=== PATIENT | male | born 1965 | race Caucasian/White ===

== ENCOUNTER → 2016-09-10 | Outpatient (CLI) | payer BC ==
[~2016-09-10] MED LIST: BP MED; HYDR1TAB8 OP; [UNRECOGNIZED DRUG - OTHER] PO; pravachol PO; ziac PO
--- NOTE | 2016-09-12 09:47 | ECHOCARDIOGRAPHY REPORT ---
DATE OF SERVICE: 09/10/2016 REFERRING PHYSICIAN: Chandrika Berrios APRN ORDERING PHYSICIAN: Dr. Marisol Murphy CLINICAL DIAGNOSIS: 1. Paroxysmal atrial fibrillation. 2. Hypertension. MEASUREMENTS: Aortic root 3.3. LV diameter diastolic 4.8 IVS thickness diastolic 0.7. LVPW thickness diastolic 0.9. DESCRIPTION: Two dimensional echocardiography shows normal global left ventricular systolic function with normal regional wall motion and left ventricular ejection fraction of approximately 60-65%. Doppler imaging shows trivial mitral and tricuspid regurgitation. Pulmonary artery systolic pressure is estimated to be approximately 25 mmHg. There is no Doppler evidence of any significant valvular stenosis. CONCLUSION: 1. Normal global left ventricular systolic function with ejection fraction of 60-65%. 2. Trivial mitral and tricuspid regurgitation. 3. No evidence of significant valvular stenosis. 4. Pulmonary artery systolic pressure is estimated to be approximately 25 mmHg. Job ID: [id number] DocumentID: [id number] Dictated Date: 09/11/2016 08:01:17 Nursing Support Worker Date: 09/11/2016 08:59:45 Dictated By: MARISOL MURPHY MD, MA, FACP, FACC,
== END ==
LOC: CARD 12:46
PROVIDERS: ATTEND Nurse Practitioner Family
DX: I10 Essential (primary) hypertension (principal); E78.4 Other hyperlipidemia; I48.0 Paroxysmal atrial fibrillation; I51.7 Cardiomegaly
CPT/HCPCS: 93306

== ENCOUNTER → 2017-07-02 | Outpatient (CLI) | payer BC ==
[~2017-07-02] MED LIST changes: +HYDR-87 PO; +METH500T PO
--- NOTE | 2017-07-02 09:59 | Diagnostic Imaging Report ---
INDICATION: Left-sided rib pain COMPARISON: None FINDINGS: Multiple views of the left ribs demonstrate no fracture or osseous lesion. There is no pneumothorax or effusion. IMPRESSION: Negative left rib series. Dictated by: Dictated on workstation # [id number]
== END ==
LOC: RAD 09:28
PROVIDERS: ATTEND Nurse Practitioner Family
DX: R07.81 Pleurodynia (principal)
CPT/HCPCS: 71100

== ENCOUNTER 2017-07-03 19:27 | Emergency (ER) | payer BC ==
[~2017-07-03] VITALS: Ht 185.4 cm; Wt 91.2 kg
[~2017-07-03 19:27] MED LIST changes: -HYDR-87 PO; -METH500T PO
--- NOTE | 2017-07-03 22:17 | ED Back Pain ---
General Chief Complaint: Back Problems Stated Complaint: LEFT SIDE RIB PAIN Nursing Triage Note: states he fell Thu off of running board of truck and landed on left side. Went to urgent care and was given pain pills. Was called today to tell him he had no fracture but since his pain has increased, wanted him seen in ED to make sure he did not rupture anything. Nursing Sepsis Screen: No Definite Risk Source of Information: Patient History of Present Illness Date Seen by Provider: Jul 03, 2017 Time Seen by Provider: 22:05 Initial Comments PT ARRIVES VIA POV FROM HOME STATES ON THURSDAY EVENING 07/01/17, HE WAS GETTING INTO HIS MORNING BABYSITTER TRUCK AND FELL OFF STEP/RUNNING BOARD, APPROXIMATELY 3 FEET OFF GROUND, AND LANDED ON HIS LEFT BACK ONTO CONCRETE DID NOT HIT HEAD AND NO LOSS OF CONSCIOUSNESS WAS SEEN AT [facility] ON THURSDAY AND HAD XRAYS DONE AND WERE REPORTED NEGATIVE--GOT RESULTS THIS AFTERNOON. RECEIVED RX FOR PAIN MEDICATION PT HAS HAD CONTINUED INCREASE IN PAIN AND MUCH PAIN WITH BREATHING NO PROBLEMS URINATING NO PARESTHESIAS OR MOTOR DEFICITS NO NAUSEA/VOMITING Other Comments PCP: NONE WELT STITCH CLEANER: DR. MURPHY Allergies and Home Medications Allergies Coded Allergies: No Known Drug Allergies (Unverified , 07/03/17) Home Medications Hydrocodone Bit/Ibuprofen 1 Each Tablet, 1-2 EACH OP Q 4 - 6 HRS PRN, #20 Ref 0 FOR PAIN Prescribed by: CORONA CLEANING on 12/07/10 0235 Hydrocodone/Ibuprofen 1 Each Tablet, 1-2 EACH PO Q4H, #20 Prescribed by: CORONA CLEANING on 07/04/17 0031 Methocarbamol 500 Mg Tablet, 500 MG PO QID, #20 Prescribed by: CORONA CLEANING on 07/04/17 0031 [klorchon] , 1 TAB PO DAILY, (Reported) [pravachol] , 1 TAB PO DAILY, (Reported) [ziac] , 1 TAB PO DAILY, (Reported) Constitutional: no symptoms reported EENTM: no symptoms reported Respiratory: see HPI Cardiovascular: see HPI Gastrointestinal: abdominal pain (LUQ AND LEFT FLANK) Genitourinary: no symptoms reported Musculoskeletal: see HPI, back pain Skin: no symptoms reported Psychiatric/Neurological: No Symptoms Reported Past Bbnopkq-Viajhk-Opoxff Hx Patient Social History Alcohol Use: Rarely Uses Recreational Drug Use: No Smoking Status: Never a Smoker 2nd Hand Smoke Exposure: No Recent Foreign Travel: No Contact w/Someone Who Travel: No Recent Infectious Disease Expo: No Recent Hopitalizations: No Immunizations Up To Date Tetanus Booster (TDap): More than 5yrs Date of Influenza Vaccine: Feb 22, 2017 Seasonal Allergies Seasonal Allergies: No Surgeries History of Surgeries: Yes (BACK SURGERY X 2) Surgeries: Orthopedic Respiratory History of Respiratory Disorde: No Cardiovascular History of Cardiac Disorders: Yes Cardiac Disorders: Hypertension Neurological History of Neurological Disord: No Reproductive System Hx Reproductive Disorders: No Sexually Transmitted Disease: No Gastrointestinal History of Gastrointestinal Di: No Musculoskeletal History of Musculoskeletal Dis: Yes (BACK SURGERY X 2) Musculoskeletal Disorders: Chronic Back Pain Endocrine History of Endocrine Disorders: No Cancer History of Cancer: No Psychosocial History of Psychiatric Problem: No Integumentary History of Skin or Integumenta: No Blood Transfusions History of Blood Disorders: No Physical Exam Vital Signs Vital Signs - First Documented 07/03/17 20:27 Temp 98.1 Pulse 81 Resp 18 B/P (MAP) 178/100 (126) Pulse Ox 96 Capillary Refill : Less Than 3 Seconds General Appearance: No Apparent Distress, WD/WN, Other (STANDING) Neck: Full Range of Motion, Normal Inspection, Non Tender, Supple Cardiovascular: Regular Rate, Rhythm, No Edema, No JVD, No Murmur, Normal Peripheral Pulses Respiratory: Normal Breath Sounds, No Accessory Muscle Use, No Respiratory Distress, Other (MODERATE TENDERNESS TO LEFT ANTERIOR/LATERAL/POSTERIOR LOWER RIB AREA. NO CREPITANCE OR SUB Q AIR) Gastrointestinal: Normal Bowel Sounds, No Organomegaly, No Pulsatile Mass, Soft , Tenderness (LEFT FLANK AND LUQ TENDERNESS, WITH FAINT BRUISE TO LEFT FLANK) Back: No Vertebral Tenderness, CVA Tenderness (L), Decreased Range of Motion Extremity: Normal Capillary Refill, Normal Inspection, Normal Range of Motion, Non Tender, No Calf Tenderness, No Pedal Edema Neurologic/Psychiatric: Alert, Oriented x3, No Motor/Sensory Deficits, Normal Mood/Affect, medical artist II-XII Norm as Tested Skin: Normal Color, Warm/Dry, Ecchymosis Progress/Results/Core Measures Results/Orders Lab Results Laboratory Tests Test 07/03/17 22:25 07/03/17 23:23 Range/Units White Blood Count 8.0 4.3-11.0 10^3/uL Red Blood Count 4.80 4.35-5.85 10^6/uL Hemoglobin 15.2 13.3-17.7 G/DL Hematocrit 45 40-54 % Mean Corpuscular Volume 94 80-99 FL Mean Corpuscular Hemoglobin 32 25-34 PG Mean Corpuscular Hemoglobin Concent 34 32-36 G/DL Red Cell Distribution Width 13.0 10.0-14.5 % Platelet Count 179 130-400 10^3/uL Mean Platelet Volume 10.3 7.4-10.4 FL Neutrophils (%) (Auto) 74 42-75 % Lymphocytes (%) (Auto) 15 12-44 % Monocytes (%) (Auto) 5 0-12 % Eosinophils (%) (Auto) 6 0-10 % Basophils (%) (Auto) 0 0-10 % Neutrophils # (Auto) 5.9 1.8-7.8 X 10^3 Lymphocytes # (Auto) 1.2 1.0-4.0 X 10^3 Monocytes # (Auto) 0.4 0.0-1.0 X 10^3 Eosinophils # (Auto) 0.5 H 0.0-0.3 10^3/uL Basophils # (Auto) 0.0 0.0-0.1 10^3/uL Prothrombin Time 12.7 12.2-14.7 SEC INR Comment 0.9 0.8-1.4 Activated Partial Thromboplast Time 27 24-35 SEC Sodium Level 140 135-145 MMOL/L Potassium Level 3.9 3.6-5.0 MMOL/L Chloride Level 106 98-107 MMOL/L Carbon Dioxide Level 22 21-32 MMOL/L Anion Gap 12 5-14 MMOL/L Blood Urea Nitrogen 16 7-18 MG/DL Creatinine 1.17 0.60-1.30 MG/DL Estimat Glomerular Filtration Rate > 60 BUN/Creatinine Ratio 14 Glucose Level 128 H 70-105 MG/DL Calcium Level 8.9 8.5-10.1 MG/DL Total Bilirubin 0.6 0.1-1.0 MG/DL Aspartate Amino Transf (AST/SGOT) 20 5-34 U/L Alanine Aminotransferase (ALT/SGPT) 53 0-55 U/L Alkaline Phosphatase 93 40-136 U/L Total Protein 7.2 6.4-8.2 GM/DL Albumin 4.4 3.2-4.5 GM/DL Amylase Level 54 25-125 U/L Lipase 18 8-78 U/L Urine Color YELLOW Urine Clarity CLEAR Urine pH 5 5-9 Urine Specific [place] 1.025 H 1.016-1.022 Urine Protein NEGATIVE NEGATIVE Urine Glucose (UA) NEGATIVE NEGATIVE Urine Ketones NEGATIVE NEGATIVE Urine Nitrite NEGATIVE NEGATIVE Urine Bilirubin NEGATIVE NEGATIVE Urine Urobilinogen NORMAL NORMAL MG/DL Urine Leukocyte Esterase NEGATIVE NEGATIVE Urine RBC (Auto) NEGATIVE NEGATIVE Urine RBC NONE /HPF Urine WBC NONE /HPF Urine Squamous Epithelial Cells 0-2 /HPF Urine Crystals NONE /LPF Urine Bacteria NEGATIVE /HPF Urine Casts NONE /LPF Urine Mucus MODERATE H /LPF Urine Culture Indicated NO My Orders Orders - CORONA CLEANING DO Saline Lock/Iv-Start (07/03/17 22:13) Amylase (07/03/17 22:13) Cbc With Automated Diff (07/03/17 22:13) Comprehensive Metabolic Panel (07/03/17 22:13) Lipase (07/03/17 22:13) Protime With Inr (07/03/17 22:13) Partial Thromboplastin Time (07/03/17 22:13) Ua Culture If Indicated (07/03/17 22:13) Ct Chest/Abdomen/Pelvis W (07/03/17 22:13) Iohexol Injection (Omnipaque 350 Mg/Ml 1 (07/04/17 00:00) Ns (Ivpb) (Sodium Chloride 0.9%) (07/04/17 00:00) Fentanyl Injection (Sublimaze Injection (07/04/17 00:26) Ketorolac Injection (Toradol Injection) (07/04/17 00:26) Orphenadrine Injection (Norflex Injectio (07/04/17 00:26) Rx-Hydrocodone/Apap 5-325 Mg (Rx-Vicodin (07/04/17 00:30) Medications Given in ED Current Medications Medications Dose Ordered Sig/Gibson Route Start Time Stop Time Status Last Admin Dose Admin Acetaminophen/ Hydrocodone Bitart 1 ea Q4H PRN PO 07/04/17 00:30 07/04/17 01:24 DC 07/04/17 00:45 1 EA Iohexol 100 ml ONCE ONCE IV 07/04/17 00:00 07/04/17 00:47 DC 07/03/17 23:49 100 ML Sodium Chloride 80 ml ONCE ONCE IV 07/04/17 00:00 07/04/17 00:47 DC 07/03/17 23:49 80 ML Vital Signs/I&O Vital Sign - Last 12Hours 07/03/17 20:27 Temp 98.1 Pulse 81 Resp 18 B/P (MAP) 178/100 (126) Pulse Ox 96 Blood Pressure Mean: [address] CHEST/ABDOMEN/PELVIS--FRACTURES LEFT RIBS 10 AND 11, NO OTHER ACUTE PROCESS-- PER [facility] VIA FAX @ 0048 Reviewed: Reviewed by Me Departure Impression Impression: Primary Impression: Multiple fractures of ribs, left side, initial encounter for closed fracture Disposition: HOME, SELF-CARE Condition: Stable Departure-Patient Inst. Referrals: NO,LOCAL PHYSICIAN (PCP/Family) Primary Care Physician Patient Instructions: Rib Fracture (DC) Add. Discharge Instructions: ALTERNATE ICE AND HEAT TO SORE AREA AT 20 MINUTE INTERVALS FOLLOW UP WITH DR OF CHOICE IN 1 WEEK FOR RECHECK All discharge instructions reviewed with patient and/or family. Voiced understanding. Scripts Methocarbamol (Robaxin) 500 Mg Tablet 500 MG PO QID for Muscle Spasms, #20 TAB Prov: CORONA CLEANING DO 07/04/17 Hydrocodone/Ibuprofen (Hydrocodone-Ibuprofen 7.5-200) 1 Each Tablet 1-2 EACH PO Q4H for Pain, #20 TAB Prov: CORONA CLEANING DO 07/04/17 CORONA CLEANING DO Jul 03, 2017 22:17
[2017-07-03 22:33] LABS: BASOPHILS % (AUTO) 0 % (0-10); EOSINOPHILS # (AUTO) 0.5 10^3/uL (0.0-0.3); EOSINOPHILS % (AUTO) 6 % (0-10); HEMATOCRIT 45 % (40-54); HEMOGLOBIN 15.2 G/DL (13.3-17.7); LYMPHOCYTES # (AUTO) 1.2 X 10^3 (1.0-4.0); LYMPHOCYTES % (AUTO) 15 % (12-44); MEAN CORPUSCULAR HEMOGLOBIN 32 PG (25-34); MEAN CORPUSCULAR HGB CONC 34 G/DL (32-36); MEAN CORPUSCULAR VOLUME 94 FL (80-99); MEAN PLATELET VOLUME 10.3 FL (7.4-10.4); MONOCYTES # (AUTO) 0.4 X 10^3 (0.0-1.0); MONOCYTES % (AUTO) 5 % (0-12); NEUTROPHILS # (AUTO) 5.9 X 10^3 (1.8-7.8); NEUTROPHILS % (AUTO) 74 % (42-75); PLATELET COUNT 179 10^3/uL (130-400)
[2017-07-03 22:43] LABS: INR 0.9 (0.8-1.4); PROTHROMBIN TIME PATIENT 12.7 SEC (12.2-14.7)
[2017-07-03 22:57] LABS: ALANINE AMINOTRANSFERASE 53 U/L (0-55); ALBUMIN 4.4 GM/DL (3.2-4.5); ALKALINE PHOSPHATASE 93 U/L (40-136); AMYLASE 54 U/L (25-125); BILIRUBIN,TOTAL 0.6 MG/DL (0.1-1.0); BUN/CREATININE RATIO 14; CALCIUM 8.9 MG/DL (8.5-10.1); CARBON DIOXIDE 22 MMOL/L (21-32); CHLORIDE 106 MMOL/L (98-107); CREATININE SERUM 1.17 MG/DL (0.60-1.30); GFR ESTIMATED > 60; GLUCOSE 128 MG/DL (70-105); LIPASE 18 U/L (8-78); POTASSIUM 3.9 MMOL/L (3.6-5.0); SODIUM 140 MMOL/L (135-145); TOTAL PROTEIN 7.2 GM/DL (6.4-8.2)
[2017-07-03 23:50] LABS: BILIRUBIN,URINE NEGATIVE (NEGATIVE); CLARITY,URINE CLEAR; COLOR,URINE YELLOW; GLUCOSE, URINE (UA) NEGATIVE (NEGATIVE); KETONES,URINE NEGATIVE (NEGATIVE); LEUKOCYTE ESTERASE ,URINE NEGATIVE (NEGATIVE); NITRITE,URINE NEGATIVE (NEGATIVE); PH,URINE 5 (5-9); PROTEIN,URINE NEGATIVE (NEGATIVE); UROBILINOGEN,URINE NORMAL (NORMAL)
[2017-07-03 23:51] LABS: BACTERIA,URINE NEGATIVE /HPF; SQUAMOUS EPITHELIAL CELL,UR 0-2 /HPF
[2017-07-04] MEDS ORDERED: IOHEXOL 350 MG/ML 100 ML (OMNIPAQUE 350) VIAL IV ONE
[2017-07-04] MEDS ORDERED: NS 250 ML (IVPB) BAG IV ONE
[2017-07-04] MEDS ORDERED: ORPHENADRINE 60 MG/2 ML (NORFLEX) AMP IV STA (00:26)
[2017-07-04] MEDS ORDERED: fentaNYL INJECTION 100 MCG/2 ML AMP IVP STA (00:26)
[2017-07-04] MEDS ORDERED: KETOROLAC 30 MG/ML VIAL IVP STA (00:26)
[2017-07-04] MEDS ORDERED: RX-HYDROCODONE/APAP 5/325 MG #4 TAB PK PO PRN (00:30)
[2017-07-04] MEDS ORDERED: METH500T PO (00:31)
[2017-07-04] MEDS ORDERED: HYDR-87 PO (00:31)
[2017-07-04 00:50] VITALS: BP 165/99
--- NOTE | 2017-07-04 07:50 | Diagnostic Imaging Report ---
PROCEDURE: CT chest, abdomen, and pelvis with contrast. TECHNIQUE: Multiple contiguous axial images were obtained through the chest, abdomen, and pelvis after the administration of intravenous contrast. INDICATION: Left-sided chest pain. No priors. FINDINGS: Fracture of the 11th rib posteriorly and the left 10th rib posterolaterally are present. These appeared recent with no evidence of healing and only minimal displacement. Remaining chest wall structures appeared unremarkable. There is no pneumothorax or hemothorax. There is only minimal left basilar partial atelectasis. The aorta is intact. There is no mediastinal or pericardial fluid. No evidence for aspiration or contusion. Abdomen and pelvis: There is no evidence for abdominal pelvic solid or hollow visceral injury. The abdominal and pelvic osseous structures were intact. No bowel, biliary or urinary tract obstruction. Left greater than right renal parapelvic cysts noted incidentally and benign. Liver, spleen, adrenals, pancreas, and gallbladder unremarkable. IMPRESSION: Acute appearing unhealed fractures of the left 10th and 11th ribs without evidence for pulmonary parenchymal or pleural injury. Intact mediastinal structures. Abdomen and pelvis: Benign renal parapelvic cyst with no evidence for abdominal pelvic solid or hollow visceral injury. No acute abdominal pelvic bony abnormality. Dictated by: Dictated on workstation # [id number]
--- OUTSIDE RECORDS SUMMARY | 2017-07-05 10:32 | XMS REPORT | Clinical Summary ---
Author Author [facility] Organization [facility] Address Unknown Phone Unavailable Care Team Providers Care Compression Molding Machine Tender Name Role Phone Unverified, Unverified Md PCP Unavailable Source Comments Some departments are not documenting in the electronic medical record. If you do not see the information that you expected, contact Release of Information in the Health Information Management department at [phone] for further assistance in locating additional records.[facility] Allergies No Known Allergies Current Medications Prescription Sig. Disp. Refills Start End Date Status Date pravastatin (PRAVACHOL) Take 40 mg by mouth Active 40 mg tablet daily. metoprolol XL (TOPROL XL) Take 100 mg by mouth Active 100 mg tablet daily with breakfast. metoprolol XL (TOPROL XL) Take 50 mg by mouth at Active 50 mg tablet bedtime daily. aspirin, buffered 325 mg Take 1 Tab by mouth Active tablet daily. flecainide (TAMBOCOR) 50 Take 1 Tab by mouth twice 60 Tab 6 03/30/20 Active mg tablet daily. 12 Active Problems Problem Noted Date Palpitations 03/29/2012 Overview: 11/03/11: Stress echo showed paroxysmal afib with RVR, No evidence of exercise-induced myocardial ischemia, EF 60%, trivial to mild mitral and tricuspid regurgitation, PA systolic pressure approx 30-35 mmHg. Paroxysmal A-fib (HCC) 03/29/2012 Overview: Echo EF normal , LA 2.9 cm. Hypertension 03/29/2012 Hypertriglyceridemia 03/29/2012 Family History Medical History Relation Name Comments Coronary Artery Disease Father Hypertension Father Coronary Artery Disease Maternal Uncle Hypertension Mother Coronary Artery Disease Paternal Grandfather Relation Name Status Comments Father NM (Age 60) Maternal Uncle Mother Alive Paternal Grandfather Sister Alive Social History Tobacco Use Types Packs/Day Years Used Date Never Smoker Smokeless Tobacco: Chew Current User Tobacco Cessation: Ready to Quit: No Sex Assigned at Date Recorded Not on file Last Filed Vital Signs Vital Sign Reading Time Taken Blood Pressure 130/84 03/30/2012 1:53 PM TECHNICAL SPEC Pulse 64 03/30/2012 1:53 PM TECHNICAL SPEC Temperature - - Respiratory Rate - - Oxygen Saturation 98% 03/30/2012 1:53 PM TECHNICAL SPEC Inhaled Oxygen - - Concentration Weight 96 kg (211 lb 11.2 oz) 03/30/2012 1:42 PM TECHNICAL SPEC Height 182.9 cm (6') 03/30/2012 1:42 PM TECHNICAL SPEC Body Mass Index 28.71 03/30/2012 1:42 PM TECHNICAL SPEC Plan of Treatment Health Maintenance Due Date Last Done Comments PHYSICAL (COMPREHENSIVE) 1973 EXAM PERTUSSIS VACCINE 1977 TETANUS VACCINE 1983 COLORECTAL CANCER 2016 SCREENING INFLUENZA VACCINE 12/23/2016 Results Not on filefrom Last 3 Months
--- OUTSIDE RECORDS SUMMARY | 2017-07-05 10:32 | XMS REPORT | Continuity of Care Document ---
Author Author [facility] Organization [facility] Address Unknown Phone Unavailable Allergies Active Description Code Type Severity Reaction Onset Reported/Identified Relationship to Patient Clinical Status Yes No Known Drug Allergies [id number] Drug Allergy Unknown N/A 12/07/2010 Medications There is no data. Problems Date Dx Coded Attending Type Code Diagnosis Diagnosed By 12/07/2010 Ot 815.00 12/07/2010 Ot 959.5 12/07/2010 Ot E000.8 12/07/2010 Ot E849.0 12/07/2010 Ot E917.9 12/10/2010 Ot 815.00 12/10/2010 Ot E000.8 12/10/2010 Ot E849.0 12/10/2010 Ot E917.9 12/23/2012 Armaan King MD, Jose M Johns V72.81 [id number] CARDIOVASCULAR 12/23/2012 Jose M Umana MD V72.81 [id number] CARDIOVASCULAR 08/10/2015 Ot 427.31 08/10/2015 Ot 785.1 08/10/2015 Ot 786.59 08/13/2015 LUZ MARIA KUMARI DO Ot M47.896 08/13/2015 LUZ MARIA KUMARI DO Ot N28.1 08/22/2015 LUZ MARIA KUMARI DO Ot M47.896 08/22/2015 LUZ MARIA KUMARI DO Ot N28.1 09/10/2016 Ot 427.31 ATRIAL FIBRILLATION 09/10/2016 Ot 785.1 PALPITATIONS 09/10/2016 Ot 786.59 CHEST PAIN NEC 09/10/2016 LUZ MARIA KUMARI DO Ot M47.896 OTHER SPONDYLOSIS, LUMBAR REGION 09/10/2016 LUZ MARIA KUMARI DO Ot N28.1 CYST OF KIDNEY, ACQUIRED 09/13/2016 RAJESH IYER LEAD RECREATION ASSISTANT Ot E78.4 OTHER HYPERLIPIDEMIA 09/13/2016 RAJESH IYER LEAD RECREATION ASSISTANT Ot I10 ESSENTIAL (PRIMARY) HYPERTENSION 09/13/2016 BAIRAJESH BECKER LEAD RECREATION ASSISTANT Ot I48.0 PAROXYSMAL ATRIAL FIBRILLATION 09/13/2016 RAJESH IYER LEAD RECREATION ASSISTANT Ot I51.7 CARDIOMEGALY 09/24/2016 RAJESH IYER LEAD RECREATION ASSISTANT Ot E78.4 OTHER HYPERLIPIDEMIA 09/24/2016 RAJESH IYER LEAD RECREATION ASSISTANT Ot I10 ESSENTIAL (PRIMARY) HYPERTENSION 09/24/2016 RAJESH IYER LEAD RECREATION ASSISTANT Ot I48.0 PAROXYSMAL ATRIAL FIBRILLATION 09/24/2016 RAJESH IYER LEAD RECREATION ASSISTANT Ot I51.7 CARDIOMEGALY 07/02/2017 LUZ MARIA KUMARI DO Ot M47.896 OTHER SPONDYLOSIS, LUMBAR REGION 07/02/2017 LUZ MARIA KUMARI DO Ot N28.1 CYST OF KIDNEY, ACQUIRED 07/02/2017 IDALIARAJESH BECKER LEAD RECREATION ASSISTANT Ot E78.4 OTHER HYPERLIPIDEMIA 07/02/2017 IDALIARAJESH BECKER LEAD RECREATION ASSISTANT Ot I10 ESSENTIAL (PRIMARY) HYPERTENSION 07/02/2017 IDALIARAJESH BECKER LEAD RECREATION ASSISTANT Ot I48.0 PAROXYSMAL ATRIAL FIBRILLATION 07/02/2017 IDALIARAJESH BECKER LEAD RECREATION ASSISTANT Ot I51.7 CARDIOMEGALY Procedures Code Description Performed By Performed On 37.26 CATHETER BASED INVASIVE ELECTROPHYSIOLOGIC TESTING Armaan King MD, Jose M 12/27/2012 37.27 CARDIAC MAPPING Armaan King MD, Jose M 12/27/2012 37.34 EXC/DESTRUCTN OF OTH LES/ TIS OF HEART, ENDOVASCULA Armaan King MD, Jose M 12/27/2012 88.72 DX ULTRASOUND-HEART Armaan King MD, Jose M 12/27/2012 Results Test Result Range B-TYPE NATRIURETIC PEPTIDE - 12/23/12 10:24 B-TYPE NATRIURETIC PEPTIDE 15 pg/mL < 100 CBC - 12/23/12 10:24 MEAN CELL HGB 31.9 pg 27.0-33.0 MEAN CELL HGB CONCENTRATION 34.1 g/dL 32.0-37.0 MEAN CELL VOLUME 93.5 fl 80.0-100.0 RED BLOOD CELL 4.64 m/cumm 4.00-6.00 RED CELL DISTRIBUTION WIDTH 12.7 % 11.0-15.6 WHITE BLOOD CELL 4.8 k/cumm 5.0-10.0 HEMOGLOBIN 14.8 gm/dL 14.0-18.0 HEMATOCRIT 43.4 % 40.0-54.0 PLATELET COUNT 195 k/cumm 150-400 PROTHROMBIN TIME WITH INR - 12/23/12 10:24 INTERNATIONAL NORMAL RATIO 1.0 0.9-1.1 PROTHROMBIN TIME 11.0 sec 9.3-12.2 PARTIAL THROMBOPLASTIN TIME - 12/23/12 10:24 PARTIAL THROMBOPLASTIN TIME 33 sec 24-36 METABOLIC PANEL, COMPREHN - 12/23/12 10:24 POTASSIUM 4.2 mmol/L 3.5-5.3 EST GFR (MDRD) > 60 mL/min > 59 ANION GAP 9 mmol/L 5-15 EST CrCl (CG) > 60 mL/min > 59 GLUCOSE 99 mg/dL 70-99 CALCIUM 8.6 mg/dL 8.5-10.1 BLOOD UREA NITROGEN 15 mg/dL 7-20 CREATININE 1.2 mg/dL 0.8-1.3 SODIUM 141 mmol/L 135-148 CHLORIDE 107 mmol/L 98-110 AST/SGOT 138 Units/L 10-37 ALT/SGPT 196 Units/L < 66 CARBON DIOXIDE 25 mmol/L 21-32 TOTAL PROTEIN 7.5 gm/dL 6.4-8.2 ALBUMIN 4.4 gm/dL 3.4-5.0 BILI TOTAL 0.6 mg/dL 0.0-1.0 ALKALINE PHOSPHATASE TOTAL 123 Units/L 50-136 MAGNESIUM - 12/23/12 10:24 MAGNESIUM 2.2 mg/dL 1.8-2.4 THYROID STIM HORMONE (TSH) - 12/23/12 10:24 THYROID STIM HORMONE (TSH) 1.76 uIU/mL 0.34-4.82 PROTHROMBIN TIME WITH INR - 12/27/12 06:25 INTERNATIONAL NORMAL RATIO 1.0 0.9-1.1 PROTHROMBIN TIME 11.1 sec 9.3-12.2 PARTIAL THROMBOPLASTIN TIME - 12/27/12 06:25 PARTIAL THROMBOPLASTIN TIME 32 sec 24-36 PARTIAL THROMBOPLASTIN TIME - 12/27/12 15:00 PARTIAL THROMBOPLASTIN TIME > 400 sec 24-36 PARTIAL THROMBOPLASTIN TIME - 12/27/12 17:20 PARTIAL THROMBOPLASTIN TIME 103 sec 24-36 PARTIAL THROMBOPLASTIN TIME - 12/27/12 18:30 PARTIAL THROMBOPLASTIN TIME 55 sec 24-36 CBC W/DIFF - 12/28/12 03:10 COMMENT REVIEWED GRANULOCYTE # 14.4 k/cumm 2.0-9.0 GRANULOCYTE % 90 % 50-75 LYMPHOCYTE # 1.1 k/cumm 1.0-4.0 LYMPHOCYTE % 7 % 20-30 MEAN CELL HGB 31.8 pg 27.0-33.0 MEAN CELL HGB CONCENTRATION 34.1 g/dL 32.0-37.0 MEAN CELL VOLUME 93.3 fl 80.0-100.0 MONOCYTE # 0.6 k/cumm 0.1-1.0 MONOCYTE % 4 % 4-6 RED BLOOD CELL 4.81 m/cumm 4.00-6.00 RED CELL DISTRIBUTION WIDTH 13.6 % 11.0-15.6 WHITE BLOOD CELL 16.1 k/cumm 5.0-10.0 HEMOGLOBIN 15.3 gm/dL 14.0-18.0 HEMATOCRIT 44.9 % 40.0-54.0 PLATELET COUNT 258 k/cumm 150-400 METABOLIC PANEL, BASIC - 12/28/12 04:30 POTASSIUM 4.0 mmol/L 3.5-5.3 EST GFR (MDRD) 58 mL/min > 59 ANION GAP 9 mmol/L 5-15 EST CrCl (CG) > 60 mL/min > 59 GLUCOSE 184 mg/dL 70-99 CALCIUM 8.5 mg/dL 8.5-10.1 BLOOD UREA NITROGEN 13 mg/dL 7-20 CREATININE 1.4 mg/dL 0.8-1.3 SODIUM 136 mmol/L 135-148 CHLORIDE 102 mmol/L 98-110 CARBON DIOXIDE 25 mmol/L 21-32 PROTHROMBIN TIME WITH INR - 12/28/12 04:30 INTERNATIONAL NORMAL RATIO 1.1 0.9-1.1 PROTHROMBIN TIME 11.8 sec 9.3-12.2 Complete blood count (CBC) with automated white blood cell (WBC) differential - 07/03/17 22:25 Blood leukocytes automated count (number/volume) 8.0 10*3/uL 4.3-11.0 Blood erythrocytes automated count (number/volume) 4.80 10*6/uL 4.35-5.85 Venous blood hemoglobin measurement (mass/volume) 15.2 g/dL 13.3-17.7 Blood hematocrit (volume fraction) 45 % 40-54 Automated erythrocyte mean corpuscular volume 94 [foz_us] 80-99 Automated erythrocyte mean corpuscular hemoglobin (mass per erythrocyte) 32 pg 25-34 Automated erythrocyte mean corpuscular hemoglobin concentration measurement ( mass/volume) 34 g/dL 32-36 Automated erythrocyte distribution width ratio 13.0 % 10.0-14.5 Automated blood platelet count (count/volume) 179 10*3/uL 130-400 Automated blood platelet mean volume measurement 10.3 [foz_us] 7.4-10.4 Automated blood neutrophils/100 leukocytes 74 % 42-75 Automated blood lymphocytes/100 leukocytes 15 % 12-44 Blood monocytes/100 leukocytes 5 % 0-12 Automated blood eosinophils/100 leukocytes 6 % 0-10 Automated blood basophils/100 leukocytes 0 % 0-10 Blood neutrophils automated count (number/volume) 5.9 10*3 1.8-7.8 Blood lymphocytes automated count (number/volume) 1.2 10*3 1.0-4.0 Blood monocytes automated count (number/volume) 0.4 10*3 0.0-1.0 Automated eosinophil count 0.5 10*3/uL 0.0-0.3 Automated blood basophil count (count/volume) 0.0 10*3/uL 0.0-0.1 Comprehensive metabolic panel - 07/03/17 22:25 Serum or plasma sodium measurement (moles/volume) 140 mmol/L 135-145 Serum or plasma potassium measurement (moles/volume) 3.9 mmol/L 3.6-5.0 Serum or plasma chloride measurement (moles/volume) 106 mmol/L 98-107 Carbon dioxide 22 mmol/L 21-32 Serum or plasma anion gap determination (moles/volume) 12 mmol/L 5-14 Serum or plasma urea nitrogen measurement (mass/volume) 16 mg/dL 7-18 Serum or plasma creatinine measurement (mass/volume) 1.17 mg/dL 0.60-1.30 Serum or plasma urea nitrogen/creatinine mass ratio 14 NRG Serum or plasma creatinine measurement with calculation of estimated glomerular filtration rate > NRG Serum or plasma glucose measurement (mass/volume) 128 mg/dL 70-105 Serum or plasma calcium measurement (mass/volume) 8.9 mg/dL 8.5-10.1 Serum or plasma total bilirubin measurement (mass/volume) 0.6 mg/dL 0.1-1.0 Serum or plasma alkaline phosphatase measurement (enzymatic activity/volume) 93 U/L 40-136 Serum or plasma aspartate aminotransferase measurement (enzymatic activity/ volume) 20 U/L 5-34 Serum or plasma alanine aminotransferase measurement (enzymatic activity/volume ) 53 U/L 0-55 Serum or plasma protein measurement (mass/volume) 7.2 g/dL 6.4-8.2 Serum or plasma albumin measurement (mass/volume) 4.4 g/dL 3.2-4.5 Serum or plasma amylase measurement (enzymatic activity/volume) - 07/03/17 22: 25 Serum or plasma amylase measurement (enzymatic activity/volume) 54 U /L 25-125 Lipase - 07/03/17 22:25 Lipase 18 U/L 8-78 PT panel in platelet poor plasma by coagulation assay - 07/03/17 22:25 Prothrombin time (PT) in platelet poor plasma by coagulation assay 12.7 s 12.2-14.7 INR in platelet poor plasma or blood by coagulation assay 0.9 0.8-1.4 Activated partial thromboplastin time (aPTT) in platelet poor plasma bycoagulation assay - 07/03/17 22:25 Activated partial thromboplastin time (aPTT) in platelet poor plasma bycoagulation assay 27 s 24-35 Complete urinalysis with reflex to culture - 07/03/17 23:23 Urine color determination YELLOW NRG Urine clarity determination CLEAR NRG Urine pH measurement by test strip 5 5-9 Specific gravity of urine by test strip 1.025 1.016- 1.022 Urine protein assay by test strip, semi-quantitative NEGATIVE NEGATIVE Urine glucose detection by automated test strip NEGATIVE NEGATIVE Erythrocytes detection in urine sediment by light microscopy NEGATIVE NEGATIVE Urine ketones detection by automated test strip NEGATIVE NEGATIVE Urine nitrite detection by test strip NEGATIVE NEGATIVE Urine total bilirubin detection by test strip NEGATIVE NEGATIVE Urine urobilinogen measurement by automated test strip (mass/volume) NORMAL NORMAL Urine leukocyte esterase detection by dipstick NEGATIVE NEGATIVE Automated urine sediment erythrocyte count by microscopy (number/high power field) NONE NRG Automated urine sediment leukocyte count by microscopy (number/high power field ) NONE NRG Bacteria detection in urine sediment by light microscopy NEGATIVE NRG Squamous epithelial cells detection in urine sediment by light microscopy 0-2 NRG Crystals detection in urine sediment by light microscopy NONE NRG Casts detection in urine sediment by light microscopy NONE NRG Mucus detection in urine sediment by light microscopy MODERATE NRG Complete urinalysis with reflex to culture NO NRG Encounters ACCT No. Visit Date/Time Discharge Status Pt. Type Provider Facility Loc./Unit Complaint [id number] 12/27/2012 05:48:00 12/28/2012 13:44:00 DIS Outpatient Armaan King MD, [facility] W.OPRA [id number] 12/23/2012 10:30:00 12/23/2012 10:30:00 DIS Outpatient Armaan King MD, [facility] W.RAC [id number] 12/23/2012 09:44:00 12/23/2012 09:44:00 DIS Outpatient Armaan King MD, [facility] W.POA [id number] 09/10/2016 12:46:00 09/10/2016 23:59:59 CLS Outpatient RAJESH IYER [facility] CARD HTN,HLP [id number] 08/10/2015 14:54:00 08/10/2015 23:59:59 CLS Outpatient LUZ MARIA KUMARI DO [facility] RAD LUMBAR RADICULOPATHY [id number] 07/03/2017 22:35:00 Document Registration [id number] 07/02/2017 09:28:00 ACT Outpatient OLGA BEARD-Kishor [facility] RAD R07.81 [id number] 08/10/2015 14:53:00 Document Registration [id number] 11/03/2011 09:21:00 Document Registration [id number] 12/10/2010 07:16:00 Document Registration [id number] 12/07/2010 00:53:00 Document Registration
== END 2017-07-04 00:50 | disposition home or self-care (01) ==
LOC: EDUNIT# 19:27 → ER 19:30
DX: S22.42XA Multiple fractures of ribs, left side, initial encounter for closed fracture (principal); I10 Essential (primary) hypertension; G89.29 Other chronic pain; M54.9 Dorsalgia, unspecified; Z98.890 Other specified postprocedural states; V58.4XXA Person boarding or alighting a pick-up truck or van injured in noncollision transport accident, initial encounter
CPT/HCPCS: 36415; 71260; 74177; 80053; 81000; 82150; 83690; 85025; 85610; 85730; 96374; 96375

== ENCOUNTER → 2018-11-16 | Outpatient (CLI) | payer BC ==
[~2018-11-16] VITALS: Ht 182.9 cm; Wt 99.8 kg
[~2018-11-16] MED LIST changes: +CATHETER FLUSH 10 ML SYR IV PRN; +HYDR-87 PO; +METH500T PO
[2018-11-16 08:36] VITALS: BP 170/99
[2018-11-16 08:46] VITALS: BP 174/97
[2018-11-16 08:48] VITALS: BP 178/90
[2018-11-16 08:49] VITALS: BP 178/90
[2018-11-16 09:31] LABS: ALANINE AMINOTRANSFERASE 85 U/L (0-55); ALBUMIN 4.8 GM/DL (3.2-4.5); ALKALINE PHOSPHATASE 104 U/L (40-136); BILIRUBIN,TOTAL 0.6 MG/DL (0.1-1.0); BUN/CREATININE RATIO 9; CALCIUM 9.6 MG/DL (8.5-10.1); CARBON DIOXIDE 23 MMOL/L (21-32); CHLORIDE 107 MMOL/L (98-107); CHOLESTEROL 156 MG/DL (< 200); CREATININE SERUM 1.25 MG/DL (0.60-1.30); GFR ESTIMATED > 60; GLUCOSE 120 MG/DL (70-105); HDL CHOLESTEROL 56 MG/DL (40-60); POTASSIUM 4.5 MMOL/L (3.6-5.0); SODIUM 141 MMOL/L (135-145); TOTAL PROTEIN 7.7 GM/DL (6.4-8.2); TRIGLYCERIDES 107 MG/DL (<150); VLDL CHOLESTEROL 21 MG/DL (5-40)
== END ==
LOC: CARD 07:14
PROVIDERS: ATTEND Nurse Practitioner Family
DX: I10 Essential (primary) hypertension (principal); E78.5 Hyperlipidemia, unspecified; I48.0 Paroxysmal atrial fibrillation; R06.09 Other forms of dyspnea; R53.83 Other fatigue; Z72.0 Tobacco use
CPT/HCPCS: 36415; 78452; 80053; 80061; 84443; 93017

== ENCOUNTER → 2020-07-19 | Outpatient (CLI) | payer BC ==
[~2020-07-19] VITALS: Ht 182.9 cm; Wt 90.9 kg
[~2020-07-19] MED LIST changes: -CATHETER FLUSH 10 ML SYR IV PRN; +GADOBUTROL 7.5 MMOL/7.5 ML (GADAVIST) VIAL IV ONE; +IOHEXOL 300 MG/ML 50 ML (OMNIPAQUE 300) VIAL IV ONE
--- NOTE | 2020-07-19 14:22 | Diagnostic Imaging Report ---
INDICATION: Right shoulder pain. The patient was brought to the fluoroscopy suite and placed on the table in the supine position. The skin over the right shoulder was prepped and draped in the usual sterile fashion. A small amount of 1% lidocaine was utilized for local anesthesia. A 21-gauge needle was advanced into the right shoulder at the rotator interval. A 15 mm solution of iodinated contrast, normal saline and gadolinium was injected under fluoroscopic observation. 15 seconds of fluoroscopic time was utilized. The needle was withdrawn and hemostasis was obtained. Patient tolerated the procedure well and was sent to MRI in satisfactory condition. IMPRESSION: Successful right shoulder injection of gadolinium contrast solution, using fluoroscopy. Dictated by: Dictated on workstation # [id number]
--- NOTE | 2020-07-19 17:07 | Diagnostic Imaging Report ---
EXAMINATION: Magnetic resonance imaging of the right shoulder with intra-articular contrast. DATE: July 19, 2020. COMPARISON: Right shoulder arthrogram July 19, 2020. HISTORY: 55-year-old male, chronic right shoulder pain. TECHNIQUE: Magnetic Resonance Imaging sequences were performed of the shoulder following the intra-articular administration of contrast. FINDINGS: ROTATOR CUFF, LIGAMENTS, TENDONS, AND MUSCLES: There is a 5 mm wide approximately 25% partial thickness articular sided tear involving the anterior aspect of the infraspinatus tendon as illustrated on sagittal T2 fat saturation sequence image 20 and coronal STIR sequence image 10. The supraspinatus, teres minor, and subscapularis tendons are intact. There is normal rotator cuff muscle bulk and signal. LONG HEAD OF BICEPS: The biceps labral attachment and long head of the biceps tendon is intact. The long head of the biceps tendon is normally positioned within the bicipital groove. GLENOHUMERAL JOINT: The humeral head is well positioned relative to the glenoid. The labrum is intact. There is no identified paralabral cyst. The articular cartilage is grossly intact. There is no intra-articular body or prominent synovitis. ACROMIOCLAVICULAR JOINT: The acromioclavicular joint is normally aligned. The coracoclavicular and coracoacromial ligaments are intact. There are mild to moderate acromioclavicular degenerative changes with osteophytes extending approximately 3 mm below the expected joint margin. BONE: There is no os acromiale. There is no Hill-Sachs deformity. There is no acute fracture, bone contusion, or evidence of osteonecrosis. There is mild degenerative related marrow change adjacent to the acromioclavicular joint. BURSAE AND SOFT TISSUES: The bursae and soft tissue surrounding the shoulder are unremarkable. IMPRESSION: 1. Intact labrum and unremarkable additional glenohumeral joint assessment. 2. 5 mm wide approximately 25% partial thickness articular sided tear involving the anterior aspect of the infraspinatus tendon with the tear measuring 4 mm in medial to lateral extent. 3. Mild to moderate acromioclavicular degenerative changes with 3 mm undersurface osteophytes. 4. No acute fracture, bone contusion, or evidence of osteonecrosis. Dictated by: Dictated on workstation # [id number]
== END ==
LOC: RAD 12:23
PROVIDERS: ATTEND Orthopaedic Surgery
DX: S46.011D Strain of muscle(s) and tendon(s) of the rotator cuff of right shoulder, subsequent encounter (principal); M19.011 Primary osteoarthritis, right shoulder; X58.XXXD Exposure to other specified factors, subsequent encounter
CPT/HCPCS: 23350; 73040; 73222